=== PATIENT | male | born 1985 | race Caucasian/White ===

== ENCOUNTER 2019-10-17 01:38 | Emergency (ER) | payer OTHER ==
[~2019-10-17] VITALS: Ht 165.1 cm; Wt 63.5 kg
[2019-10-17 01:39] VITALS: BP 134/85
--- NOTE | 2019-10-17 01:45 | NUR ---
34 Y/O MALE BIBA ALS C/O LLQ ABD PAIN X 1 DAY . PT RATES ABD PAIN 10/10 , SHARP , RADIATING TO LEFT FLANK. PT STATES THE PAIN GETS WORSE UPON SITTING. PT + VOMITING X 2 EPISODES. PT DENIES NAUSEA, DIARRHEA , CONSTIPATION, CHEST PAIN, SOB, FEVER , CHILLS, BODY ACHES. PT ABD FLAT, SOFT AND TENDER TO TOUCH. PT GUARDING LLQ ABD. NORMOACTIVE BS IN ALL QUADS. PT DENIES TRAUMA/FALL/INJURY. PT STATES HE WOKE UP YESTERDAY AND WAS IN PAIN. PT RR EVEN AND UNLABORED, A/O X4. PT RESTING IN BED, LOCKED AND IN LOWEST POSITION, HOB ELEVATED, SIDE RAIL X2 FOR PT SAFETY. VSS. PMH: DENIES NKA
--- NOTE | 2019-10-17 01:51 | NUR ---
DR. ORDAZ AT BEDSIDE FOR EVALUATION.
[2019-10-17] MEDS ORDERED: NACL 0.9% 1,000 ML IV ONE (01:55)
[2019-10-17] MEDS ORDERED: KETOROLAC 15 MG/ML VIAL IVP ONE (01:55)
[2019-10-17] MEDS ORDERED: ONDANSETRON 4 MG/2 ML VIAL IVP ONE (01:55)
--- NOTE | 2019-10-17 02:05 | NUR ---
LAB AT BEDSIDE.
--- NOTE | 2019-10-17 02:10 | NUR ---
PT TAKEN TO CT VIA W/C
[2019-10-17 02:15] LABS: BASOPHILS % (AUTO) 0.5 % (0.0-2.0); EOSINOPHILS # (AUTO) 0.3 K/uL (0-0.4); EOSINOPHILS % (AUTO) 3.4 % (0.0-4.0); HEMATOCRIT 44.9 % (36-52); HEMOGLOBIN 15.3 g/dL (12.0-18.0); LYMPHOCYTES # (AUTO) 2.6 K/uL (2.0-11.5); LYMPHOCYTES % (AUTO) 33.2 % (20.5-51.1); MEAN CORPUSCULAR HEMOGLOBIN 31 pg (27-31); MEAN CORPUSCULAR HGB CONC 34 g/dL (33-37); MEAN CORPUSCULAR VOLUME 89.8 fL (80-94); MONOCYTES # (AUTO) 0.6 K/uL (0.8-1.0); MONOCYTES % (AUTO) 7.7 % (1.7-9.3); NEUTROPHILS # (AUTO) 4.3 K/uL (1.8-7.7); NEUTROPHILS % (AUTO) 55.2 % (42.2-75.2); PLATELET COUNT (AUTO) 249 K/uL (140-450); RED BLOOD CELL COUNT(AUTO) 4.99 MIL/uL (4.20-6.10); RED CELL DISTRIBUTION WIDTH 13.5 % (11.6-13.7); WHITE BLOOD COUNT (AUTO) 7.8 K/uL (4.8-10.8)
--- NOTE | 2019-10-17 02:18 | NUR ---
PT RETURNED FROM CT VIA W/C
--- NOTE | 2019-10-17 02:20 | NUR ---
PT PROVIDED A URINAL FOR URINE SAMPLE COLLECTION.
[2019-10-17 02:33] LABS: ANION GAP 11.8 (8-16); CARBON DIOXIDE 29.6 mmol/L (21-32); CREATININE 1.2 mg/dL (0.6-1.3); POTASSIUM 3.4 mmol/L (3.5-5.1); TOTAL BILIRUBIN 0.7 mg/dL (0.0-1.0)
--- NOTE | 2019-10-17 03:01 | NUR ---
DR. ORDAZ AT BEDSIDE FOR RE EVALUATION.
[2019-10-17 03:12] LABS: APPEARANCE,URINE CLOUDY (CLEAR); BILIRUBIN,URINE NEGATIVE (NEGATIVE); BLOOD, URINE 3+ (NEGATIVE); COLOR,URINE YELLOW (YELLOW); LEUKOCYTE ESTERASE ,URINE NEGATIVE (NEGATIVE); NITRITE, URINE NEGATIVE (NEGATIVE); UGLUCOSE NEGATIVE (NEGATIVE)
--- NOTE | 2019-10-17 03:15 | NUR ---
PER PT CONSENT, OKAY TO UPDATE FAMILY W/ STATUS. PT UPDATED ON PT STATUS AT THIS TIME.
--- NOTE | 2019-10-17 03:19 | NUR ---
PT AMBULATED TO RESTROOM W/ STEADY GAIT
[2019-10-17 03:24] LABS: RBC,URINE TOO NUMEROUS TO COUN /HPF (0-5); WBC,URINE 0-5 /HPF (0-5)
[2019-10-17 03:25] LABS: CALCIUM OXALATE CRYSTALS,UR 0-10 /HPF (None Seen)
--- NOTE | 2019-10-17 03:40 | NUR ---
IV removed, catheter intact and site benign. Applied folded 4x4 gauze and tape to stop bleeding.
[2019-10-17 03:42] VITALS: BP 109/70
--- NOTE | 2019-10-17 03:42 | NUR ---
Patient discharged with v/s stable. Written and verbal after care instructions given and explained. Patient alert, oriented and verbalized understanding of instructions. Ambulatory with steady gait. All questions addressed prior to discharge. ID band removed. Patient advised to follow up with PMD. Rx of NORCO, IBUPROFEN AND FLOMAX given. Patient educated on indication of medication including possible reaction and side effects. Opportunity to ask questions provided and answered.
== END 2019-10-17 03:42 | disposition home or self-care (01) ==
LOC: MED 01:38
DX: N20.1 Calculus of ureter (principal)
CPT/HCPCS: 36415; 74176; 80053; 81001; 83690; 85025; 87086; 96361; 96374; 96375; 99284; J1885; J2405; J7030

== ENCOUNTER 2019-10-20 00:37 | Emergency (ER) | payer OTHER ==
[~2019-10-20] VITALS: Ht 165.1 cm; Wt 64.4 kg
[2019-10-20 00:44] VITALS: BP 153/100
--- NOTE | 2019-10-20 00:46 | NUR ---
PT AMBULATED TO BED #12
--- NOTE | 2019-10-20 00:59 | NUR ---
LT SIDED ABD PAIN RADIATES TO LT FLANK. SEEN IN ER ON 09/14 FOR SAME COMPLAINT. ABD IS SOFT, ROUND,ACTIVE BS, AND TENDERNESS TO TOUCH ON LEFT QUADS AND LEFT FLANK. PT SHOWS DISTRESS FROM PAIN. DENIES ANY DYSURIA, OR BLOOD IN URINE. VSS. A&O X4. STEADY GAIT. TOOK NORCO 2HRS AGO. 10/10 PRESSURE FEELING. PMH- KIDNEY STONES NKA
[2019-10-20] MEDS: NACL 0.9% 1,000 ML IV ONE (01:12)
[2019-10-20] MEDS: KETOROLAC 30 MG/ML VIAL IVP ONE (01:12)
--- NOTE | 2019-10-20 01:22 | NUR ---
ERMD AT BEDSIDE EVALUATING THE PT.
[2019-10-20] MEDS: MORPHINE SULFATE 4 MG/ML SYR IVP ONE (01:37)
[2019-10-20 02:50] VITALS: BP 153/100
== END 2019-10-20 02:50 | disposition home or self-care (01) ==
LOC: MED 00:37
DX: N20.0 Calculus of kidney (principal)
CPT/HCPCS: 81002; 96361; 96374; 96375; 99284; J1885; J2270; J7030